=== PATIENT | male | born 1990 | race Caucasian/White ===

== ENCOUNTER 2023-02-17 08:56 | Outpatient (AMB) | payer MEDICAID, SELFPAY ==
--- NOTE | 2023-02-17 09:31 | MHC.OFFVIS ---
Intake Vital Signs 02/17/23 09:43 Height 5 ft 8 in Weight 150 lb BMI 22.8 Intake Visit Reasons: N/P rt knee pain/MRI done at [facility] Intake Note: Boogie 32 yr old male presents today for a new patient visit for his right knee pain and giving way. The patient states that he injured his right knee 4 years ago while skiing. He collided with a tree, twisted his right knee and had acute onset of pain. Since that time his symptoms have gotten worse in spite of continued non operative treatments. He has done physical therapy for 12 weeks over the last 6 months which aggravated his pain. Has had multiple injections. The most recent injection gave him minimal relief. He has also tried Tylenol and anti-inflammatory medicines which gave him only mild relief. The patient states that his right knee will give out several times per day. 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 [employer] Physical Exam Vital Signs: BMI result Body Mass Index 22.8 Const Other: Well-nourished well-developed very friendly male awake alert and oriented x3 in no acute distress Lungs - clear to auscultation bilaterally with symmetric expansion Cardiovascular exam - regular rate and rhythm Abdominal exam - soft nontender nondistended Extrem Other: Bilateral lower extremity examination shows good capillary refill, no skin lesions noted, normal sensation light touch Right knee examination shows a minimal effusion, minimal crepitus with range of motion, tenderness along his medial joint line, positive Alfredo's test, no instability Assessment & Plan Assessment & Plan (1) Tear of medial meniscus of right knee: Code(s): S83.241A - Other tear of medial meniscus, current injury, right knee, initial encounter Plan: Mr. Araiza is a 32-year-old male who presents with progressively worsening right knee pain and mechanical symptoms due to a tear of his medial meniscus. I would a lengthy discussion with the patient regarding the treatment options. At this point the patient has failed continued non operative treatments. The risks and benefits of right knee arthroscopic surgery were discussed at length with the patient. The patient wishes to proceed with surgery. He will contact my office to pick a surgery date. Surgery will most likely involve right knee diagnostic arthroscopy with partial medial meniscectomy. The patient does understand that he may not get 100% relief of his symptoms depending on the severity of his degenerative changes. Feel free to call me at any time should questions regarding his orthopedic management arise. Thank you very much for asking me to see this very friendly gentleman. I spent 22 minutes in reviewing the patient's records and imaging studies, seeing the patient and documenting in the medical record. Coding Level of Care Code New Pt Level 2 (53712) Diagnoses Tear of medial meniscus of right knee S83.241A
[2023-02-17 09:43] VITALS: BMI 22.8
== END 2023-02-17 10:00 | disposition home or self-care (01) ==
PROVIDERS: PCP Internal Medicine; Visit Provider Orthopaedic Surgery
DX: S83.241A Other tear of medial meniscus, current injury, right knee, initial encounter (principal)
CPT/HCPCS: 99202

== ENCOUNTER → 2023-02-17 08:56 | Outpatient (BNVA) | payer MEDICAID, SELFPAY | PROVIDERS: PCP Internal Medicine; Visit Provider Orthopaedic Surgery | DX: S83.241A Other tear of medial meniscus, current injury, right knee, initial encounter (principal) | CPT/HCPCS: 99202 ==

== ENCOUNTER 2023-03-04 10:22 | Day surgery (SDC) | payer MEDICAID, SELFPAY ==
[2023-03-02 09:37] VITALS: BMI 22.8
--- NOTE | 2023-03-03 11:44 | P.CONAN_ITS ---
Documented by User: Joana Zeng NP 03/03/23 11:44 HPI - Anesthesia Eval Consult details Narrative: 32yo M for Right Knee Arthroscopy partial medial meniscectomy, possible lateral meniscectomy PMFSH Active Problems Active Problems: All Active Problems (Updated 03/02/23 @ 09:37 by Sravani Lan RN) Tear of medial meniscus of right knee (Acute) Past Medical History Medical History (Updated 03/02/23 @ 09:37 by Sravani Lan RN) Depression Surgical History Surgical History (Updated 03/02/23 @ 09:36 by Sravani Lan RN) Hx of local excision of skin lesion Social History Social History Patient Tobacco Use Status: Never used Tobacco Current occupational status: employed Current occupation: [employer] Allergies Allergy/AdvReac Type Severity Reaction Status Date / Time amoxicillin Allergy Intermediate Vomiting Verified 03/02/23 09:34 sulfamethoxazole Allergy Intermediate Vomiting Verified 03/02/23 09:34 [From ] trimethoprim [From ] Allergy Intermediate Vomiting Verified 03/02/23 09:34 epinephrine AdvReac Intermediate dizziness Verified 03/02/23 09:33 Home Medications Medication Instructions Recorded Confirmed Last Taken Type aripiprazole 5 mg tablet 5 mg PO DAILY 02/17/23 03/02/23 Unknown History fluoxetine 20 mg capsule 40 mg PO QAM 02/17/23 03/02/23 Unknown History venlafaxine 150 mg 150 mg PO DAILY 02/17/23 03/02/23 Unknown History capsule,extended release 24 hr Exam Height,Weight and Vital Signs: Height 5 ft 8 in Weight 68.039 kg Assessment and Plan Assessment Anesthesia Assessment: Chart Reviewed Documented by User: Jaziel Simmons MD 03/04/23 09:52 PMFSH Past Medical History Medical History (Updated 03/02/23 @ 09:37 by Sravani Lan RN) Depression Family History Family history of problems with anesthesia: No Surgical History Surgical History (Updated 03/02/23 @ 09:36 by Sravani Lan RN) Hx of local excision of skin lesion History of Problems with Anesthesia: No Social History Social History Patient Tobacco Use Status: Never used Tobacco Current occupational status: employed 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 Meds Allergies Allergy/AdvReac Type Severity Reaction Status Date / Time amoxicillin Allergy Intermediate Vomiting Verified 03/02/23 09:34 sulfamethoxazole Allergy Intermediate Vomiting Verified 03/02/23 09:34 [From ] trimethoprim [From ] Allergy Intermediate Vomiting Verified 03/02/23 09:34 epinephrine AdvReac Intermediate dizziness Verified 03/02/23 09:33 Home Medications Medication Instructions Recorded Confirmed Last Taken Type aripiprazole 5 mg tablet 5 mg PO DAILY 02/17/23 03/02/23 Unknown History fluoxetine 20 mg capsule 40 mg PO QAM 02/17/23 03/02/23 Unknown History venlafaxine 150 mg 150 mg PO DAILY 02/17/23 03/02/23 Unknown History capsule,extended release 24 hr Exam Airway Mallampati Class: Patient Non-Cooperative TM Dist: >3cm Neck ROM: Full Heart: rrr Lungs: cts Assessment and Plan Assessment Anesthesia Assessment: Anesthesia Plan Discussed Final Anesthetic Review Family History of Problems with Anesthesia: No History of Problems with Anesthesia: No NPO: Yes ASA Class: I Final Preanesthetic Review: No Changes in Pt Med Stat, Meds/Allgs Chart Reviewed, Consent Obtained/Reviewed and Anes Risks/Benef Reviewed Patient Risk: Low Procedure Risk: Intermediate Anesthetic Plan Anesthetic Plan: GA and Agree w/ Assess. and Plan Disposition: Standard PACU
[2023-03-04] VITALS (10 sets, daily range): BP systolic 85–131; BP diastolic 31–97; PULSE 77–105; RESP 16–18; TEMP 36.4–37.6; O2SAT 95–99; BMI 23.5
[2023-03-04] MEDS: Lactated Ringers 1,000 ML 100 ML IVCONT (11:26)
--- NOTE | 2023-03-04 13:17 | PM.OP ---
Brief Operative Note Date of Service: 03/04/23 Pre-op diagnosis: Right knee medial meniscus tear Post-op diagnosis: same Procedure: Right knee diagnostic arthroscopy with right knee arthroscopic partial medial meniscectomy Implants: none Surgeon: Vaughn Clemens MD Anesthesia: GLMA Was an Carton Waxing Machine Operator used for this Procedure?: No Estimated blood loss (mL): 10 Pathology: none sent Condition: stable Disposition: PACU
--- NOTE | 2023-03-04 13:18 | P.OP_ITS ---
Operative Note Operative Note Date of Service: 03/04/23 Narrative: After the patient was identified as Boogie Araiza and their right knee was initialed by myself they were brought to the operating room where general anesthesia was induced by the anesthesiologist in routine fashion. Because of the patient's allergy to amoxicillin he was given 900 mg of IV clindamycin preoperatively for infection prophylaxis. A formal time-out was completed. The patient's right lower extremity was prepped and draped in sterile fashion. Marcaine with epinephrine was injected into the planned incision sites as well as their left knee joint. A # 11 scalpel blade was used to make an anterolateral portal 1 cm proximal to the joint line and 1 cm lateral to the patellar tendon. Blunt trocar technique was used into the suprapatellar pouch with the knee in extension. Diagnostic arthroscopy showed multiple bands of thickened plica which would be excised at the end of the procedure. There were no loose bodies or abnormalities found in either the medial or lateral gutters. There were diffuse grade 1 degenerative changes of the undersurface of the patella as well as minimal degenerative changes of the trochlear groove. The patient's knee was flexed to 45 degrees and a valgus force was placed upon it. The medial compartment was entered. An anteromedial portal was made 1 cm proximal to the joint line and 1 cm medial to the patellar tendon. Probing of the medial meniscus showed a radial tear of the anterior horn. A partial medial meniscectomy was performed using the arthroscopic shaver. Following the partial meniscectomy the remainder of the meniscus tissue was stable. There were mi nimal degenerative changes of the medial femoral condyle and medial tibial plateau. The patient's knee was then placed into a neutral position. There was no injury to the anterior cruciate ligament. The patient's knee was then placed into the figure of 4 position and the lateral compartment was entered. There were minimal degenerative changes of the lateral femoral condyle and lateral tibial plateau. There was no evidence of lateral meniscus tearing. The patient's knee was once again brought into extension and the suprapatellar pouch was entered. The arthroscopic shaver and the ArthroCare Wand were used to excise the thickened bands of plica. The knee joint was irrigated and then drained. All arthroscopic instruments were removed. The 2 portals were closed with 3-0 nylon interrupted suture. The knee joint was injected with Marcaine. Dry sterile dressing and Franklin bandages were placed over the patient's knee. The patient was woken and expand the operating room. They were transferred to the recovery room in stable condition.
== END 2023-03-04 15:25 | disposition home or self-care (01) ==
PROVIDERS: PCP Physician Assistant; Visit Provider Orthopaedic Surgery
PROC: (CPT 29870; principal; 2023-03-04 12:10)
DX: S83.241A Other tear of medial meniscus, current injury, right knee, initial encounter (principal); M67.51 Plica syndrome, right knee; M17.11 Unilateral primary osteoarthritis, right knee; X58.XXXA Exposure to other specified factors, initial encounter; X50.1XXA Overexertion from prolonged static or awkward postures, initial encounter; Y93.9 Activity, unspecified; Y92.9 Unspecified place or not applicable; Y99.8 Other external cause status; W22.09XA Striking against other stationary object, initial encounter; Y93.23 Activity, snow (alpine) (downhill) skiing, snowboarding, sledding, tobogganing and snow tubing; Z79.899 Other long term (current) drug therapy; Z88.0 Allergy status to penicillin; Z88.1 Allergy status to other antibiotic agents; Z88.8 Allergy status to other drugs, medicaments and biological substances
CPT/HCPCS: 29881; J0131; J0171; J0690; J0736; J1100; J1885; J2371; J2405; J2704; J2795

== ENCOUNTER → 2023-03-04 10:22 | Outpatient (BNV) | payer MEDICAID, SELFPAY | PROVIDERS: PCP Physician Assistant; Visit Provider Orthopaedic Surgery | DX: S83.231A Complex tear of medial meniscus, current injury, right knee, initial encounter (principal) | CPT/HCPCS: 29881 ==

== ENCOUNTER 2023-03-24 08:51 | Outpatient (AMB) | payer MEDICAID, SELFPAY ==
--- NOTE | 2023-03-24 09:02 | A.OFFVIS_ITS ---
Intake Intake Visit Reasons: PO-Rt Knee 03/04 Intake Note: Boogie a 32 year old male presents today for a post operative right knee on 03/04/23 . Patient reports that he is doing well however he continues to have pain and discomfort. Current pain level is 7 out of 10. Allergies amoxicillin Allergy (Intermediate, Verified 03/24/23 09:06) Vomiting sulfamethoxazole [From Septra] Allergy (Intermediate, Verified 03/24/23 09:06) Vomiting trimethoprim [From Septra] Allergy (Intermediate, Verified 03/24/23 09:06) Vomiting epinephrine Adverse Reaction (Intermediate, Verified 03/24/23 09:06) dizziness HPI PO-Rt Knee 03/04 HPI Details 32-year-old male who returns to the [facility] today for post-op right knee , 03/04/[address] Clemens. He continues to have pain, discomfort and swelling in his knee and rates the pain 7 as on the scale of 0-10. He is doing well otherwise and has no other concerns today. 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 No joint effusion, no erythema. ROM is 0-100 degrees. Calf supple, nontender. NVI. Results Reviewed Results Reviewed: Date of Service: 03/04/23 Pre-op diagnosis: Right knee medial meniscus tear Post-op diagnosis: same Procedure: Right knee diagnostic arthroscopy with right knee arthroscopic partial medial meniscectomy Implants: none Surgeon: Vaughn Clemens MD Assessment & Plan Assessment & Plan (1) Tear of medial meniscus of right knee: Code(s): S83.241A - Other tear of medial meniscus, current injury, right knee, initial encounter Qualifiers: Tear current or old: current Encounter type: subsequent encounter Meniscus tear of knee type: peripheral Qualified Code(s): S83.221D - Peripheral tear of medial meniscus, current injury, right knee, subsequent encounter Plan Sutures were removed today in the office today. He will begin a course of physical therapy to work on ROM, quad strength and gait training. He will remain out of work till he returns to office in 4 weeks for reevaluation, sooner if needed. Orders: Orders PT Evaluation and Treatment Today S83.241A - Other tear of medial meniscus, current injury, right knee, initial encounter Patient Instructions: Scribed for Kat Wilkins PA-C, by Jose Cheng medical care evaluation specialist, on 03/24/2023 at 9:00 AM EST. I, Kat Wilkins PA-C, have personally reviewed and agree with the information entered by the scribe. Coding Level of Care Code Global (71445) Diagnoses Peripheral tear of medial meniscus of right knee as current injury, subsequent encounter S83.221D Tear current or old: current Encounter type: subsequent encounter Meniscus tear of knee type: peripheral
== END 2023-03-24 09:34 | disposition home or self-care (01) ==
PROVIDERS: PCP Physician Assistant; Visit Provider Physician Assistant
DX: S83.221D Peripheral tear of medial meniscus, current injury, right knee, subsequent encounter (principal)
CPT/HCPCS: 99024

== ENCOUNTER → 2023-03-24 08:51 | Outpatient (BNVA) | payer MEDICAID, SELFPAY | PROVIDERS: PCP Physician Assistant; Visit Provider Physician Assistant | DX: S83.221D Peripheral tear of medial meniscus, current injury, right knee, subsequent encounter (principal) | CPT/HCPCS: 99212 ==

== ENCOUNTER 2023-04-21 09:27 | Outpatient (AMB) | payer MEDICAID, SELFPAY ==
--- NOTE | 2023-04-21 09:29 | A.OFFVIS_ITS ---
Intake Vital Signs 04/21/23 09:30 Height 5 ft 8 in Weight 150 lb BMI 22.8 Intake Visit Reasons: PO-Rt Knee 03/04 Intake Note: Boogie a 32 year old male presents with his mother today for a post operative Right knee on 03/04/23 . Patient reports that he is feeling good for the most part but is causing some discomfort when driving. Physical therapy is helping and he is icing as needed. He plans to return to work over the next few weeks as his symptoms allow. Allergies amoxicillin Allergy (Intermediate, Verified 04/21/23 09:34) Vomiting sulfamethoxazole [From Septra] Allergy (Intermediate, Verified 04/21/23 09:34) Vomiting trimethoprim [From Septra] Allergy (Intermediate, Verified 04/21/23 09:34) Vomiting epinephrine Adverse Reaction (Intermediate, Verified 04/21/23 09:34) dizziness Medication List - Last Reconciled 04/21/23 by Vaguhn Clemens MD fluoxetine 40 mg PO QAM griseofulvin microsize mg PO lamotrigine 100 mg PO DAILY oxycodone 5 mg PO Q6H PRN venlafaxine ER 150 mg PO DAILY PFSH Medical History History of chemotherapy Pneumothorax Depression Surgical History History of kidney surgery History of orchiectomy, unilateral H/O brain surgery Hx of local excision of skin lesion Social History Patient Tobacco Use Status: Never used Tobacco Current occupational status: employed Current occupation: [employer] Physical Exam Vital Signs: BMI result Body Mass Index 22.8 Extrem Other: Right knee examination shows that the surgical incisions are well healed, minimal discomfort with range of motion, no crepitus with range of motion Assessment & Plan Assessment & Plan (1) Right knee pain: Code(s): M25.561 - Pain in right knee Plan Mr. Araiza continues to do well after undergoing right knee arthroscopic surgery on 03/04/2023. He will continue progressing to activities as tolerated. He can return to work when his symptoms are improved. He will contact me prior to his follow-up appointment in 2-3 months should any questions or concerns arise. Feel free to call me at any time should questions regarding his orthopedic management arise. Coding Level of Care Code Global (95404) Diagnoses Right knee pain M25.561
[2023-04-21 09:30] VITALS: BMI 22.8
== END 2023-04-21 09:59 | disposition home or self-care (01) ==
PROVIDERS: PCP Physician Assistant; Visit Provider Orthopaedic Surgery
DX: M25.561 Pain in right knee (principal)
CPT/HCPCS: 99024

== ENCOUNTER → 2023-04-21 09:27 | Outpatient (BNVA) | payer MEDICAID, SELFPAY | PROVIDERS: PCP Physician Assistant; Visit Provider Orthopaedic Surgery | DX: M25.561 Pain in right knee (principal) | CPT/HCPCS: 99212 ==

== ENCOUNTER 2023-07-19 07:00 | Outpatient (RCR) | payer MEDICAID, SELFPAY ==
--- NOTE | 2023-03-30 15:13 | MHC.PT.EP ---
[facility] [place] Office [place] Office [place] Office [address] Elizabeth Steinberg [address] [phone] F: [phone] F: [phone] F: [phone] F: [phone] Physical Therapy Plan of Care Date of Evaluation: 03/30/23 Date of Surgery: 03/04/23 Diagnosis: S/P R KNEE PARTIAL MENISCECTOMY Assessment: Pt IS 32 YO M REFERRED TO PT FROM ORTHO (JEANNE) S/P R KNEE PARTIAL MEDIAL MENISCECTOMY BY DR JUÁREZ ON 03/04/23. AFTER ABOUT 4 YR HX OF RP KNEE ISSUES. PRESENTS TO PT WITHOUT LIMP.(BUT HIP ER NOTED). REPORTS KNEE PAIN WITH MIN SWELLING, SOME R LE WEAKNESS (DECREASED ENDURANCE) AND SLIGHT LIMITED R KNEE ROM. 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 WOULD LIKE TO GET BTW AND SKIING Frequency and Duration: The patient will be seen 2X/WK X 4 WKS THEN 1X/WK X 2 WEEKS Short Term Goals: 1. INCREASED AWARENESS KNEE CARE 2. R KNEE ROM 0-130 Penitentiary Goals: 1. RTW 2. I HEP WITH DC EX PLAN 3. DECREASED R KNEE PAIN AT LEAST 50% WITH ADLS Treatment Plan: Modalities to reduce pain, spasms and effusion. Manual therapy to restore motion and function. Therapeutic exercise to improve strength and flexibility. Neuromuscular re-education for posture and balance. Therapeutic activities to return to functional activities of daily living. Electronically signed by: KASANDRA VO Please sign and return to therapist. Thank you for your referral.
--- NOTE | 2023-07-19 09:59 | MHC.PT.OD ---
[facility] [place] Office [place] Office [place] Office [address] Elizabeth Steinberg [address] [phone] F: [phone] F: [phone] F: [phone] F: [phone] Physical Therapy Daily Note Diagnosis: S/P R KNEE PARTIAL MENISCECTOMY Date of Surgery: 03/04/23 Date of Evaluation: 03/30/23 Date of Treatment: 07/19/23 Treatments to Date: 19 Cancellations to Date: No Shows to Date: Authorized Visits: Insurance End Date: Precautions/ Contraindications:S/P R MEDIAL PARTIAL MENISCECTOMY HX OF CA/CHEMOTHERAPY BRAIN SURGERY IN PAST Subjective: Pt has resumed playing some basketball and has tried gentle hiking. Has not been to PT since 06/10/23. Pain Score and Location: 3 LIM Objective Flowsheet: Tests & Measures R knee pain 2-7/10 Pt SLS ~3 seconds. Pt has baseline poor tolerance for SLS control. Exercises Held bike Review Standing 4 way resisted hip with TB cues for stability/support/technique, review of standing mini squat to 45 pain-free level only (benefitted from review of technique, trial BAPS board level 5 base (poor tolerance for weight shift DF/PF, EV/IV with pain reported so this was DC. STANDING [address] HIP WITH RED TB X 20 R EA B, STANDING CALF STRETCH X 3 R B, B HEEL RAISE X 20, STEP UPS LEADING WITH R ON 6 INCH SETP X 20 R, SLS R AND L FOR TOE TAPS ON BOX X 20 R B, WALL SLIDE X 2 SETS OF 10, LUNGES A/P/LAT WITH EMPHASIS ON PUSH OFF Pt ASKS ABOUT TAPING FOR KNEE. ED CAN BE BENEFICIAL POST OP TYPE PAIN DECREASES Modalities Pt request ice anterior/posterior knee at end of session x 5 minutes Assessment: 07/19/23: Pt has attended 18 sessions of PT to date, exhibiting plateaued progress but overall improved progress in mobility. He has met goals in regard to PT at this time. He has reported played some light pickup basketball and has trialed some low level hiking with ongoing sx reported. He has tried skiing back in May and had sx for several days after. He inquires about ability to resume. He has poor tolerance for BAPS board in the office and has sx with >45 degree mini squat in medial aspect of his knee. He he been advised to refrain from running, jumping, and impact activities which load his R knee. Pt has a follow up with his surgeon on 07/21/23. 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 Pt has limited SLS control on either side (hx brain surgery limited at baseline). Pt's AROM 0 to 128 degrees. Please advise. Pt inquires bout other options for his knee. Pt states his ultimate goal is skiing. Please advised. 06/10/23: Pt advancing in level of strength and dynamic positions in regard to his R knee. He has been eager to try skiing again, however due to pain pt reports with stairs and ongoing patient encourages patient to give strengthening program more time. Pt is scheduled to meet with his surgeon again on 07/21/23. Pt reports pain medially anterior aspect of his knee, reports need to ice often. At one point today he states his knee pain is worse than before surgery. 05/30/23: Pt advancing in level of eccentric control. He has resumed working long hours with minimal discomfort. Pt denies pain with exercises as noted above. Reduction in level of UE support on bars required with LE tasks. 05/27/23: Pt has returned to work. He reports trying to shoot/jogging playing basketball for an hour an a half yesterday. Reports compliance with HEP, has next appt with Dr. Clemens July 20. Pt continues to exhibit challenge with SLS and eccentric control of R >L LE. Requires increased cues for guidance of exercise (hx brain surgery). IMPROVING SL BALANCE NOTED, NO C/O PAIN WITH STRETCHES/EXS. SHOULD BE ABLE TO DECREASE TO 1X/WK SOON. 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 Short Term Goals: 1. INCREASED AWARENESS KNEE CARE 2. R KNEE ROM 0-130 [facility] Goals: 1. RTW 2. I HEP WITH DC EX PLAN 3. DECREASED R KNEE PAIN AT LEAST 50% WITH ADLS Electronically signed by: Edith Haas, PT, DPT
--- NOTE | 2023-08-10 14:48 | MHC.PT.DC ---
[facility] [place] [facility] [place] [facility] [place] [facility] [address] Elizabeth Steinberg [address] [phone] F: [phone] F: [phone] F: [phone] F: [phone] Physical Therapy Discharge Report Diagnosis: S/P R KNEE PARTIAL MENISCECTOMY Date of Surgery: 03/04/23 Date of Evaluation: 03/30/23 Date of Discharge: 08/10/23 Treatments to Date: 19 Cancellations to Date: No Shows to Date: Discharge Status: Achieved Goals Improved Function Independent with HEP Recommend MD Follow-up Discharge Summary: PER ASSESSMENT BY BALJEET SCHMIDT PT, DPT AT LAST VISIT 07/19/23: Pt has attended 18 sessions of PT to date, exhibiting plateaued progress but overall improved progress in mobility. He has met goals in regard to PT at this time. He has reported played some light pickup basketball and has trialed some low level hiking with ongoing sx reported. He has tried skiing back in May and had sx for several days after. He inquires about ability to resume. He has poor tolerance for Eventful[employer] board in the office and has sx with >45 degree mini squat in medial aspect of his knee. He he been advised to refrain from running, jumping, and impact activities which load his R knee. Pt has a follow up with his surgeon on 07/21/23. 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 Pt has limited SLS control on either side (hx brain surgery limited at baseline). Pt's AROM 0 to 128 degrees. Please advise. Pt inquires bout other options for his knee. Pt states his ultimate goal is skiing. Please advised. Electronically signed by: KASANDRA ORONA PT Please sign and return to therapist. Thank you for your referral.
== END 2023-08-10 14:48 | disposition home or self-care (01) ==
LOC: HO.PTWFD 07:00
PROVIDERS: PCP Physician Assistant; Visit Provider Physician Assistant
DX: S83.241D Other tear of medial meniscus, current injury, right knee, subsequent encounter (principal)
CPT/HCPCS: 97110; 97161; 97530; 97535

== ENCOUNTER 2023-07-21 08:26 | Outpatient (AMB) | payer MEDICAID, SELFPAY ==
[2023-07-21 08:27] VITALS: BMI 22.8
--- NOTE | 2023-07-21 08:27 | A.OFFVIS_ITS ---
Intake Vital Signs 07/21/23 08:27 Height 5 ft 8 in Weight 150 lb BMI 22.8 Intake Visit Reasons: ov-Rt Knee 03/04 Intake Note: Boogie is a 32 year old male who presents for his follow up s/p his Right knee on 03/04/2024. He reports mild intermittent discomfort in his right knee. He has completed formal physical therapy. He continues with his home exercise program. He also states that he is going to begin working out at the gym. Allergies amoxicillin Allergy (Intermediate, Verified 07/21/23 08:33) Vomiting sulfamethoxazole [From Septra] Allergy (Intermediate, Verified 07/21/23 08:33) Vomiting trimethoprim [From Septra] Allergy (Intermediate, Verified 07/21/23 08:33) Vomiting epinephrine Adverse Reaction (Intermediate, Verified 07/21/23 08:33) dizziness Medication List - Last Reconciled 07/21/23 by Vaughn Clemens MD fluoxetine 40 mg PO QAM griseofulvin microsize mg PO lamotrigine 100 mg PO DAILY oxycodone 5 mg PO Q6H PRN venlafaxine ER 150 mg PO DAILY PFSH Medical History History of chemotherapy Pneumothorax Depression Surgical History History of kidney surgery History of orchiectomy, unilateral H/O brain surgery Hx of local excision of skin lesion Social History Patient Tobacco Use Status: Never used Tobacco Current occupational status: employed Current occupation: [employer] Physical Exam Vital Signs: BMI result Body Mass Index 22.8 Const Other: Well-nourished well-developed very friendly male awake alert and oriented x3 in no acute distress Extrem Other: Bilateral lower extremity examination shows good capillary refill, no skin lesions noted, normal sensation light touch Right knee examination shows that the surgical incisions are well healed, no erythema, no crepitus with range of motion, minimal discomfort with range of mo tion, no instability Assessment & Plan Assessment & Plan (1) Right knee pain: Code(s): M25.561 - Pain in right knee Plan Boogie continues to do well after undergoing right knee arthroscopic surgery on 03/04/2000 3. He will continue with his exercise program. Stretching exercises were also encouraged today. He will contact me prior to his follow-up appointment in 2-3 months should any questions or concerns arise. Feel free to call me at any time should questions regarding his orthopedic management arise. I spent 22 minutes in reviewing the patient's records and imaging studies, seeing the patient and documenting in the medical record. Coding Level of Care Code Est Pt Level 2 (46803) Diagnoses Right knee pain M25.561
== END 2023-07-21 09:04 | disposition home or self-care (01) ==
PROVIDERS: PCP Physician Assistant; Visit Provider Orthopaedic Surgery
DX: M25.561 Pain in right knee (principal)
CPT/HCPCS: 99213

== ENCOUNTER → 2023-07-21 08:26 | Outpatient (BNVA) | payer MEDICAID, SELFPAY | PROVIDERS: PCP Physician Assistant; Visit Provider Orthopaedic Surgery | DX: M25.561 Pain in right knee (principal) | CPT/HCPCS: 99212 ==

== ENCOUNTER 2023-10-20 08:26 | Outpatient (AMB) | payer OTHER, SELFPAY ==
--- NOTE | 2023-10-20 08:39 | A.OFFVIS_ITS ---
Vital Signs 10/20/23 08:40 Height 5 ft 8 in Weight 144 lb BMI 21.9 Intake Visit Reasons: ov-Rt Knee 03/04 DR-3 month follow up Intake Note: Boogie is a 32 year old male who presents for a follow up of his right knee s/p Right knee 03/04/2023. He reports mild intermittent discomfort in his knee. He denies any fevers or chills. He denies any locking or giving way. He states that his discomfort has improved when compared to preop. Allergies amoxicillin Allergy (Intermediate, Verified 10/20/23 08:42) Vomiting sulfamethoxazole [From Septra] Allergy (Intermediate, Verified 10/20/23 08:42) Vomiting trimethoprim [From Septra] Allergy (Intermediate, Verified 10/20/23 08:42) Vomiting epinephrine Adverse Reaction (Intermediate, Verified 10/20/23 08:42) dizziness Medication List - Last Reconciled 10/20/23 by Vaughn Clemens MD cetirizine (Wal-Zyr (cetirizine)) 10 mg PO DAILY PRN fluoxetine 40 mg PO QAM lurasidone 20 mg PO DAILY venlafaxine ER 150 mg PO DAILY PFSH Medical History History of chemotherapy Pneumothorax Depression Surgical History History of kidney surgery History of orchiectomy, unilateral H/O brain surgery Hx of local excision of skin lesion Social History Patient Tobacco Use Status: Never used Tobacco Current occupational status: employed Current occupation: [employer] Physical Exam Vital Signs: BMI result Body Mass Index 21.9 Const Other: Well-nourished well-developed very friendly male awake alert and oriented x3 in no acute distress Extrem Other: Bilateral lower extremity examination shows good capillary refill, no skin lesions noted, normal sensation light touch Right knee examination shows that the surgical incisions are well healed, no erythema, minimal discomfort with range of motion, no crepitus with range of motion Assessment & Plan Assessment & Plan (1) Right knee pain: Code(s): M25.561 - Pain in right knee Category: Medical Plan Mr. Araiza continues to do well after undergoing right knee arthroscopic surgery on 03/04/2023. He will continue with his exercise program. At this point his discomfort is tolerable to him. We will hold off on an injection. He will follow up with me on an as-needed basis should his symptoms worsen in any way. Feel free to call me at any time should questions regarding his orthopedic management arise. I spent 21 minutes in reviewing the patient's records and imaging studies, seeing the patient and documenting in the medical record. Coding Level of Care Code Est Pt Level 3 (78280) Diagnoses Right knee pain M25.561
[2023-10-20 08:40] VITALS: BMI 21.9
== END 2023-10-20 08:58 | disposition home or self-care (01) ==
PROVIDERS: PCP Physician Assistant; Visit Provider Orthopaedic Surgery
DX: M25.561 Pain in right knee (principal)
CPT/HCPCS: 99213

== ENCOUNTER → 2023-10-20 08:26 | Outpatient (BNVA) | payer OTHER, SELFPAY | PROVIDERS: PCP Physician Assistant; Visit Provider Orthopaedic Surgery ==

== ENCOUNTER → 2023-11-18 08:15 | Outpatient (BNV) | payer OTHER, SELFPAY | PROVIDERS: Visit Provider Psychiatry & Neurology Psychiatry | DX: F41.1 Generalized anxiety disorder (principal); F32.A Depression, unspecified; F81.9 Developmental disorder of scholastic skills, unspecified; R41.840 Attention and concentration deficit; F84.8 Other pervasive developmental disorders; Z86.59 Personal history of other mental and behavioral disorders | CPT/HCPCS: 90792; 99213; 99214; 99499 ==

== ENCOUNTER 2023-11-21 07:26 | Outpatient (REF) | payer OTHER, SELFPAY ==
--- NOTE | 2023-11-21 | ECG_ITS ---
Test Reason : qtc check Blood Pressure : / mmHG Vent. Rate : 092 BPM Atrial Rate : 092 BPM P-R Int : 146 ms QRS Dur : 072 ms QT Int : 334 ms P-R-T Axes : 079 071 055 degrees QTc Int : 413 ms Normal sinus rhythm Right atrial enlargement Borderline ECG No previous ECGs available Referred By: Sonia Mireles Electronically Signed By:SELIN GARCIA
[2023-11-21 07:49] LABS: MANUAL DIFF FLAG NO
[2023-11-21 08:23] LABS: Basophils Absolute Auto 0.1 X10*3/uL (0.0-0.2); Eosinophils Absolute Auto 0.3 X10*3/uL (0.0-0.4); Eosinophils Percent Auto 5.3 % (0-4); Hematocrit 47.6 % (42.0-52.0); Hemoglobin 15.8 g/dl (14.0-18.0); Imm Gran Abs Auto 0.02 X10*3/uL (0.00-0.03); Imm Gran Pct Auto 0.3 % (0.0-0.4); Lymphocytes Absolute Auto 1.8 X10*3/uL (1.2-4.9); Lymphocytes Percent Auto 31.3 % (20-40); Mean Corpuscular HGB Conc 33.2 g/dl (31.0-36.0); Mean Corpuscular Hemoglobin 28.1 pg (27.0-33.0); Mean Corpuscular Volume 84.7 fL (80.0-98.0); Mean Platelet Volume 9.5 fL (9.4-12.4); Monocytes Absolute Auto 0.6 X10*3/uL (0.1-1.2); Monocytes Percent Auto 9.9 % (2-11); Neutrophils Absolute Auto 3.1 x10*3/uL (2.0-8.3); Neutrophils Percent Auto 52.2 % (45-73); Platelet Count 295 X10*3/uL (160-400); Red Blood Count 5.62 X10*6/uL (4.60-5.80); Red Cell Distribution Width 12.6 % (11.0-16.0); White Blood Count 5.9 X10*3/uL (4.8-10.8)
[2023-11-21 08:31] LABS: Estimated Average Glucose 97 mg/dL
[2023-11-21 08:53] LABS: Alanine Aminotransferase 27 U/L (0-40); Albumin Level 4.6 g/dL (3.5-5.0); Alkaline Phosphatase 57 U/L (39-117); Anion Gap 13 (12-20); Aspartate Amino Transferase 28 U/L (5-37); Bilirubin Total 0.7 mg/dL (0.0-1.0); Blood Urea Nitrogen 15 mg/dL (9-16); Calcium 10.3 mg/dL (8.4-10.2); Carbon Dioxide 27 mmol/L (22-29); Chloride 105 mmol/L (96-108); Cholesterol 193 mg/dL (<200); Estimated Glomerular Filt Rate > 60; Glucose Fasting 95 mg/dL (60-99); HDL Cholesterol 54 mg/dL (>40); Iron 59 mcg/dL (45-160); LDL Cholesterol Calculated 115 mg/dL (<100); Percent Iron Saturation 21 % (15-50); Potassium 3.9 mmol/L (3.3-5.1); Sodium 141 mmol/L (135-145); Total Iron Binding Capacity 285 mcg/dL (228-428); Total Protein 7.7 g/dL (6.5-8.0); Triglycerides 120 mg/dL (<150); Unsaturated Iron Binding 226 ug/dL
[2023-11-21 08:59] LABS: Erythrocyte Sedimentation Rate 5 MM/HR (0-15)
[2023-11-21 09:11] LABS: Ferritin 45 ng/mL (20-250); Free T4 (Free Thyroxine) 1.06 ng/dL (0.71-1.85); Vitamin D 25-OH Total 52.6 ng/mL (>30)
[2023-11-21 09:20] LABS: Folate 7.9 ng/mL (> or = 4.0); Vitamin B12 747 pg/mL (200-900)
== END 2023-11-21 07:27 | disposition home or self-care (01) ==
LOC: HO.LAB 07:26
PROVIDERS: Visit Provider Psychiatry & Neurology Psychiatry
DX: F41.1 Generalized anxiety disorder (principal); Z13.1 Encounter for screening for diabetes mellitus
CPT/HCPCS: 36415; 80053; 80061; 82306; 82607; 82728; 82746; 83036; 83540; 83735; 84439; 85025; 85652; 93005

== ENCOUNTER 2023-12-12 08:30 | Outpatient (RCR) | payer OTHER, SELFPAY ==
[2023-11-18 10:46] VITALS: BMI 22.2
[2023-11-18 11:37] VITALS: BP 124/82; PULSE 74; TEMP 37.1
--- NOTE | 2023-11-18 11:51 | PC.ADMIT ---
Patient is a 33 year old single male who self referred to [facility] secondary to increased depression and anxiety sxs. Patient also reports struggling with OCD sxs. Patient feels stuck in his life. 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 Taking time off from work to attend [facility] and work on his mental health. He currently lives with parents who are supportive. He reports going through many medical challenges including a history of testicular cancer, 2 spontaneous pneumothorax's, tumor surgically removed on kidney, and brain surgery to have a cyst removed. Patient is alert and oriented x4. Calm and cooperative. Thoughts are logical and clear. Patient presented with depressed mood anxious affect. Moderate tremor in bilateral hands/arms. He stated he is very anxious. He denied SI currently, patient stated, I have had them in the past but no serious plan just a thought . He was given a copy of his safety plan if needed. Medications reconciled with patient and patient's pharmacy. He reports taking medications as prescribed.
--- NOTE | 2023-11-18 23:50 | HO.PS.ADMBH ---
HPI Date of Service: 11/18/23 Chief Complaint: anxiety,OCD Sources of Information: patient interviewed, chart reviewed and crisis/core team assessment reviewed HPI Narrative: Patient is an employed, single 33 yo male with history of anxiety, depression, OCD, Learning Disabilities and other pertinent developmental and past medical history, who was self-referred to PHP on the suggestion his mother who is a social media manager. I've been having ongoing problems...I am 10 years out of college, lots of different jobs but mostly been underemployed for years, I haven't had a career type job and just feel like I am not getting anywhere in life . Patient shares that he has life goals of being successful and becoming a homeowner, getting , having a family, but feels unclear what the next steps are, how to make progress and just feels he is without any clear direction . Past Psychiatric History: Denies any history of IPLOC, PHP or detox/rehab admissions Denies SA or SIBs Hx of developmental issues, prematurity as well as medical problems requiring brain surgery at age 7 Hx Learning disabilities, working memory and processing issues was in special education in childhood and eventually maintained on an IEP Carries diagnoses for LD, OCD There has been mention of ADHD but previous clinician suggested struggles related to anxiety, learning disabilities. He was treated with Strattera which he did not tolerate, and experienced side effects in keeping with serotonin syndrome (of note pt was simultaneously treated on Strattera, Prozac, Effexor) Previous treatment trials: patient has been on combination of Prozac 40 mg and Effexor XR 150 mg since 2007. He is unsure why he has remained on both because they were started over 15 years ago. Following medications were added as augmentation to this regime, mostly were poorly tolerated and caused side effects in a short time (except lithium and Latuda): Lamictal (fatigue), Abilify (worsening mood/SI), Risperidal (fatigue poor tolerance), olanzapine (dizziness), Strattera in 2019, Valium, lorazepam, [place] ([id number] I did pretty well ), Latuda (current - believes it was started for anxiety, and has been modestly helpful, does help with sleep) CURRENT MEDICATIONS: fluoxetine 40 mg qam venlafaxine ER 150 mg qam Latuda 40 mg qd w supper cetirizine 10 mg qd prn ciclopirox (for seborrhaic dermatitis) clobetasol (for seborrhaic dermatitis) ketoconazole (for seborrhaic dermatitis) [facility] Medical History (Updated 11/21/23 @ 09:17 by Sonia Mireles MD) History of chemotherapy Pneumothorax Depression Narrative: Born prematurely 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, underwent surgery at 7 yo Collapsed lung x2 as a teen Testicular cancer in 2016, s/p orchiectomy (R) Underwent chemotherapy Seborrhaic dermatitis Surgical History (Updated 11/18/23 @ 10:44 by Christiana Shankar RN) History of kidney surgery History of orchiectomy, unilateral H/O brain surgery Hx of local excision of skin lesion Social History: Unmarried, no children Lives at home with parents 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 Has held previous jobs at [employer] and the [employer] at his school Born and raised in [place], [place] with both parents and younger brother (Developmental history as noted above) He was involved with [employer] from [id number] but was diagnosed with cancer and moved back home with his parents Graduated from [employer] with Bachelors degree in Business Management/[employer] in 2014 He moved to [place] in 2019, gained employment out there due to family connections, 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 No hx of abuse/dependence Cannabis - tried once in college. Never since No illicit substance use Lifetime nonsmoker Trauma History: medical/health-related trauma Diagnostics Vital Signs (24Hr): Vital Signs - 24 hr 11/18/23 11:37 Temperature 98.8 F Pulse Rate 74 Blood Pressure 124/82 BMI result Body Mass Index 22.2 Meds/Allergies Meds Home Medications ?Medication ?Instructions ?Recorded ?Confirmed ?Type venlafaxine 150 mg 150 mg PO DAILY 02/17/23 11/18/23 History capsule,extended release 24 hr cetirizine 10 mg capsule (Wal-Zyr 10 mg PO DAILY PRN Allergy Symptoms 10/20/23 11/18/23 History (cetirizine)) ciclopirox 1 % shampoo See Rx Instructions .Route .COMPLEX 11/18/23 11/18/23 History clobetasol 0.05 % scalp solution See Rx Instructions .Route .COMPLEX 11/18/23 11/18/23 History ketoconazole 2 % topical cream See Rx Instructions .Route 11/18/23 11/18/23 History .COMPLEX PRN Rash lurasidone 40 mg tablet 40 mg PO DAILY 11/18/23 11/18/23 History Allergies Allergies Allergy/AdvReac Type Severity Reaction Status Date / Time amoxicillin Allergy Intermediate Vomiting Verified 10/20/23 08:42 sulfamethoxazole Allergy Intermediate Vomiting Verified 10/20/23 08:42 [From ] trimethoprim [From ] Allergy Intermediate Vomiting Verified 10/20/23 08:42 scallops Allergy Vomiting Verified 11/18/23 10:45 epinephrine AdvReac Intermediate dizziness Verified 10/20/23 08:42 Mental Status Exam Mental Status Exam Narrative: Alert, oriented, in no acute distress. Presents as nervous, tremulous, with notable stammer, but is otherwise pleasant, somewhat superficially brighter than expected, very talkative but engaging. Comes across as younger than his chronological age. Maintains eye contact. Mood good , affect anxious, constricted, brighter than expected. Speech normal. Thought process linear, coherent. Thought content related to stressors, denies any hopelessness or SI. Denies any aggressive ideation or HI. No paranoia or delusional content elicited. No evidence of psychosis. Insight and judgment - fair but adequate. Assessment & Plan Assessment & Plan (1) MIGUEL A (generalized anxiety disorder): Status: Acute Code(s): F41.1 - Generalized anxiety disorder (2) Depressive disorder: Status: Acute Code(s): F32.A - Depression, unspecified (3) Learning disability: Status: Acute Code(s): F81.9 - Developmental disorder of scholastic skills, unspecified (4) Cognitive attention deficit: Status: Acute Code(s): R41.840 - Attention and concentration deficit Assessment and Plan: with patchy LT memory impairment (?related to chemotx or medical condition) otherwise possible related to developmental issues r/o ADHD (5) Other pervasive developmental disorders: Status: Acute Code(s): F84.8 - Other pervasive developmental disorders Assessment and Plan: r/o ASD, r/o NVLD (6) History of OCD (obsessive compulsive disorder): Status: Acute Code(s): Z86.59 - Personal history of other mental and behavioral disorders Plan Admit to [facility] VS reviewed: hermila, BP 124/82;?74 bpm mood appears to be stable and given the redundancy of being treated on 2 fully therapeutically-dosed antidepressants and yet is still undertreated for anxiety, would prefer tapering him off one of these and starting Buspar to further treat generalized anxiety Also he appears shaky, and given history of side effects to many other medications started I suspect that this combination of SSRI/SNRI is complicating his treatment and made adding Strattera (yet a 3rd antidepressant) intolerable. Given history of withdrawal symptoms from the rare occasion of missing his medications, I suspect he will have an easier time tapering off fluoxetine rather than Effexor. taper fluoxetine to 30 mg qam continue venlafaxine ER 150 mg qd continue lurasidone 40 mg qd will anticipate starting Buspar once Prozac is lower and consider treatment for ADHD Routine lab work ordered EKG, routine for baseline QTc for medication considerations UDS as indicated MassPat reviewed Continue to monitor as per protocol Patient educated on: diagnosis and medication risk/benefits Informed Consent: understands Reason for continued partial hosp. stay Substantial Risk for: inability to function and med/psych decompensation Certification I certify that partial hospital treatment is medically necessary due to the symptoms and problems resulting from the patient's mental illness and the failure to treat the patient at the partial hospital level of care would likely result in the patient requiring inpatient psychiatric care which could not be prevented at a less intensive level of care. Time Spent With Patient Time: Total time managing care of this patient today __60__ minutes.
--- NOTE | 2023-11-24 14:59 | HO.PHP ---
Pt's case has been opened and reviewed in treatment team.
--- NOTE | 2023-11-25 22:39 | P.PNPSP_ITS ---
Subjective Subjective Date of Service: 11/25/23 Reason For Visit: anxiety,OCD Interim History: Patient seen for follow up. Anxiety has been manageable and mood has been holding up well even with decrease in fluoxetine to 30 mg. He tried the lorazepam once in the interim like we mentioned to see if it could be helpful for high-stress situations (like job interviews) where he has been undermined by his anxiety. He found it to be sedating, however he took one tablet (instead of 1/2 tablet). He would likely benefit from a lower dose to take as a prn and is encouraged at some point in the next week to try taking 1/2 tablet for situational anxiety. We discuss starting propranolol to help target tremulousness and other phsycial symptoms of anxiety. He is eager to start on the Buspar, so will continue to taper the fluoxetine while he starts on Buspar 5 mg BID then to TID. Suggest taking the PM dose around 5-6 pm with his Latuda to simplify dosing regime. He denies any SI, HI ,AH, VH. Medication Compliance: Yes Side effects from medications: No Attending Groups: Yes Review of Systems Acute medical concerns: No Mental Status Exam Mental Status Exam Narrative: Alert, oriented, in no acute distress. Calm, cooperative, engaged, appears anxious, inhibited but pleasant. Tremulous, but otherwaise no psychomotor agitation or neurovegetative retardation. Eye contact maintained. Mood anxious, affect variable, bright mood congruent. Speech normal. Thought process linear, coherent. Thought content related to stressors, denies any hopelessness or SI. Denies any aggressive ideation or HI. No paranoia or delusional content elicited. No evidence of psychosis. Insight and judgment - fair but adequate. Diagnostics Vital Signs (24Hr): BMI result Body Mass Index 22.2 Assessment & Plan Assessment & Plan (1) MIGUEL A (generalized anxiety disorder): Status: Acute Code(s): F41.1 - Generalized anxiety disorder (2) Depressive disorder: Status: Acute Code(s): F32.A - Depression, unspecified (3) Learning disability: Status: Acute Code(s): F81.9 - Developmental disorder of scholastic skills, unspecified (4) Cognitive attention deficit: Status: Acute Code(s): R41.840 - Attention and concentration deficit Assessment and Plan: with patchy LT memory impairment (?related to chemotx or medical condition) otherwise possible related to developmental issues r/o ADHD (5) Other pervasive developmental disorders: Status: Acute Code(s): F84.8 - Other pervasive developmental disorders (6) History of OCD (obsessive compulsive disorder): Status: Acute Code(s): Z86.59 - Personal history of other mental and behavioral disorders Plan start propranolol 10 mg BID prn anxiety start Buspar 5 mg TID continue to decrease fluoxetine to 20 mg qam continue venlafaxine ER 150 mg qd continue other regular medications? Routine lab work ordered EKG, routine for baseline QTc for medication considerations Continue to monitor Patient educated on: diagnosis and medication risk/benefits Informed Consent: understands Reason for contiued partial hosp. stay Substantial Risk for: med/psych decompensation Certification I certify that partial hospital treatment is medically necessary due to the symptoms and problems resulting from the patient's mental illness and the failure to treat the patient at the partial hospital level of care would likely result in the patient requiring inpatient psychiatric care which could not be pr evented at a less intensive level of care. Total time managing care of this patient today __30__ minutes. Discharge Plan Discharge Attending provider: Sonia Mireles Medications: New buspirone 5 mg tablet 5 mg PO TID Qty: 30 0RF propranolol 10 mg tablet 10 mg PO BID PRN (Reason: for anxiety) Qty: 20 0RF methylphenidate HCl 5 mg tablet 5 mg PO DAILY Qty: 20 0RF Rx Instructions: Partial Fill upon patient request. methylphenidate HCl [Concerta] 18 mg tablet extended release 24hr 18 mg PO QAM Qty: 14 0RF Rx Instructions: Partial Fill upon patient request. buspirone 10 mg tablet 10 mg PO BID Qty: 20 0RF Continued ketoconazole 2 % cream See Rx Instructions .ROUTE .COMPLEX PRN (Reason: Rash) Rx Instructions: APPLY TO FACE AND CHEST TWICE DAILY NEEDED FOR FLARES clobetasol 0.05 % solution See Rx Instructions .ROUTE .COMPLEX Rx Instructions: APPLY TO SCALP TWICE DAILY NEEDED FOR FLARES, DECREASE USE SYMPTOMS IMPROVE ciclopirox 1 % shampoo See Rx Instructions .ROUTE .COMPLEX Rx Instructions: Apply to scalp x2 week, leave on 5 minutes then wash off. lurasidone 40 mg tablet 40 mg PO DAILY Rx Instructions: Take with a 350 calorie snack. Wal-Zyr (cetirizine) 10 mg capsule 10 mg PO DAILY PRN (Reason: Allergy Symptoms) venlafaxine 150 mg capsule,extended release 24hr 150 mg PO DAILY Changed lorazepam 0.5 mg tablet 0.25 - 0.5 mg PO DAILY PRN (Reason: anxiety) Qty: 20 0RF Discontinued fluoxetine 20 mg capsule 40 mg PO QAM Stand Alone Forms: Patient Portal Discharge page Print Language: Upper Sorbian
--- NOTE | 2023-11-29 09:46 | P.PNPSP_ITS ---
Subjective Subjective Date of Service: 11/29/23 Reason For Visit: anxiety,OCD Interim History: Met with patient. Reviewed chart. Noted partial hospital program provider notes on 11/18/2023 and 11/25/2023. Patient reports med changes for anxiety have been helpful, but is also unsure if lowering fluoxetine might make things worse. That being said is willing to per severe with changes and acknowledges that he may be more anxious about this, simply because he has been taking that med ication for such a long time. Has not noted any problems with BuSpar own and overall has felt less anxious. sleep okay. Energy okay. No SI, HI agitation or psychosis. Engage in treatment. He was eager to discuss ADD medications, which he reported discussing with Dr. Mireles last week. Patient will meet with Dr. Mireles later this week, to further discus. Plan: As per patient plan was discuss ADD treatmwnt with Dr. Mireles - will defer to follow up with Dr. Madera to be arranged for 11/30. Propranolol trial daily and prn no other changes ie maintain recently started buspirone 5 tid, recently lowerd fluoxetine and maintain effexor 150 Medication Compliance: Yes Side effects from medications: No Attending Groups: Yes Review of Systems Acute medical concerns: No Review of Systems Review of Systems Yes all other systems are reviewed and are negative Mental Status Exam Mental Status Exam Narrative: Pleasant. Engaged. Casually dressed and presented. Organized. Does have some anxiety evident. Not depressed. No SI or HI. No agitation or psychosis. Insight and judgment good Diagnostics Vital Signs (24Hr): BMI result Body Mass Index 22.2 Assessment & Plan Assessment & Plan (1) MIGUEL A (generalized anxiety disorder): Status: Acute Code(s): F41.1 - Generalized anxiety disorder (2) Depressive disorder: Status: Acute Code(s): F32.A - Depression, unspecified (3) Learning disability: Status: Acute Code(s): F81.9 - Developmental disorder of scholastic skills, unspecified (4) Cognitive attention deficit: Status: Acute Code(s): R41.840 - Attention and concentration deficit Assessment and Plan: with patchy LT memory impairment (?related to chemotx or medical condition) otherwise possible related to developmental issues r/o ADHD (5) Other pervasive developmental disorders: Status: Acute Code(s): F84.8 - Other pervasive developmental disorders (6) History of OCD (obsessive compulsive disorder): Status: Acute Code(s): Z86.59 - Personal history of other mental and behavioral disorders Plan Plan: As per patient plan was discuss ADD treatmwnt with Dr. Mireles - will defer to follow up with Dr. Madera to be arranged for 11/30. Propranolol trial daily and prn no other changes ie maintain recently started buspirone 5 tid, recently lowerd fluoxetine and maintain effexor 150 Patient educated on: diagnosis and medication risk/benefits Informed Consent: understands Reason for contiued partial hosp. stay Substantial Risk for: inability to function and med/psych decompensation Certification I certify that partial hospital treatment is medically necessary due to the symptoms and problems resulting from the patient's mental illness and the failure to treat the patient at the partial hospital level of care would likely result in the patient requiring inpatient psychiatric care which could not be prevented at a less intensive level of care. Total time managing care of this patient today __25__ minutes. Discharge Plan Discharge Attending provider: Sonia Mireles Medications: New fluoxetine 10 mg capsule 10 mg PO DAILY Qty: 30 0RF buspirone 5 mg tablet 5 mg PO TID Qty: 30 0RF lorazepam 0.5 mg tablet 0.5 mg PO DAILY PRN (Reason: anxiety) Qty: 20 0RF propranolol 10 mg tablet 10 mg PO BID PRN (Reason: for anxiety) Qty: 20 0RF No Action ketoconazole 2 % cream See Rx Instructions .ROUTE .COMPLEX PRN (Reason: Rash) Rx Instructions: APPLY TO FACE AND CHEST TWICE DAILY NEEDED FOR FLARES clobetasol 0.05 % solution See Rx Instructions .ROUTE .COMPLEX Rx Instructions: APPLY TO SCALP TWICE DAILY NEEDED FOR FLARES, DECREASE USE SYMPTOMS IMPROVE ciclopirox 1 % shampoo See Rx Instructions .ROUTE .COMPLEX Rx Instructions: Apply to scalp x2 week, leave on 5 minutes then wash off. lurasidone 40 mg tablet 40 mg PO DAILY Rx Instructions: Take with a 350 calorie snack. Wal-Zyr (cetirizine) 10 mg capsule 10 mg PO DAILY PRN (Reason: Allergy Symptoms) venlafaxine 150 mg capsule,extended release 24hr 150 mg PO DAILY fluoxetine 20 mg capsule 40 mg PO QAM Stand Alone Forms: Patient Portal Discharge page Print Language: [place] Telehealth Telehealth Telehealth Platform: Other (please specify) ([employer]) Location of provider rendering services: practice address ([place]) Location of patient: other ([facility] Telehealth method: video Patient verbally consented to treatment: Yes Minutes spent on Phone/Video with Pt.: 15
--- NOTE | 2023-12-02 15:52 | HO.PHPPROGNO ---
Subjective Subjective Date of Service: 12/02/23 Reason For Visit: anxiety,OCD Interim History: I felt the meds they worked well...didnt feel any side effects, felt less tense and anxious Patient started on propranolol however only has been taking a couple of times (bc the bottle says PRN). He denies any lightheadedness/dizziness, and is encouraged to continue on the daily, and would do well to take BID along with the Buspar (in AM and late afternoon). He continues on Buspar 5 mg BID with no issues, he understands it takes time for it to help with generalized/cognitive anxiety which persists, but does not feel it has gotten any worse even with tapering his fluoxetine down from 60 to 20 mg. He admits he had some anxiety about wheteher he was going to be able to taper off the fluoxetine but now that he is almost there he is feeling more optimistic. He is eager to continue titrating the Buspar over the long weekend and is agreeable to discontinuing the Prozac now. He plan to increase Buspar to 10 mg this afternoon, and continue on 5 mg in AM until 2 more days and then will be at 10 mg BID. WIll plan to titrate as tolerated, hopefully we will reach ~15 mg BID by day of discharge and can remain at that dose until he follows up with his OP provider. The PA was not approved for lisdexamfetamine, so will plan to trial methylphenidate. He is aware will start at a very low dose, given we are still treating his anxiety. He reports sleep, appetite, energy are good. Denies ay panic attacks. Mood is okay denies any hopelessness or SI. Medication Compliance: Yes Side effects from medications: No Attending Groups: Yes Review of Systems Acute medical concerns: No Review of Systems Review of Systems Yes all other systems are reviewed and are negative Mental Status Exam Mental Status Exam Narrative: Pleasant. Engaged. Casually dressed and presented. Organized. Does have some anxiety evident. Not depressed. No SI or HI. No agitation or psychosis. Insight and judgment good Diagnostics Vital Signs (24Hr): BMI result Body Mass Index 22.2 Assessment & Plan Assessment & Plan (1) MIGUEL A (generalized anxiety disorder): Status: Acute Code(s): F41.1 - Generalized anxiety disorder (2) Depressive disorder: Status: Acute Code(s): F32.A - Depression, unspecified (3) Learning disability: Status: Acute Code(s): F81.9 - Developmental disorder of scholastic skills, unspecified (4) Cognitive attention deficit: Status: Acute Code(s): R41.840 - Attention and concentration deficit Assessment and Plan: with patchy LT memory impairment (?related to chemotx or medical condition) otherwise possible related to developmental issues r/o ADHD (5) Other pervasive developmental disorders: Status: Acute Code(s): F84.8 - Other pervasive developmental disorders (6) History of OCD (obsessive compulsive disorder): Status: Acute Code(s): Z86.59 - Personal history of other mental and behavioral disorders Plan continue propranolol 10 mg BID regularly increase to titrate Buspar to 10 mg BID (pt prefers BID dosing over TID dosing) taper off fluoxetine continue venlafaxine ER 150 mg qd continue lurasidone 40 mg qd w meals continue other regular medications? Routine lab work ordered EKG, routine for baseline QTc for medication considerations Continue to monitor Patient educated on: diagnosis, medication risk/benefits and substance abuse Informed Consent: understands Reason for contiued partial hosp. stay Substantial Risk for: med/psych decompensation Certification I certify that partial hospital treatment is medically necessary due to the symptoms and problems resulting from the patient's mental illness and the failure to treat the patient at the partial hospital level of care would likely result in the patient requiring inpatient psychiatric care which could not be prevented at a less intensive level of care. Total time managing care of this patient today __30__ minutes. Discharge Plan Discharge Attending provider: Sonia Mireles Medications: New buspirone 5 mg tablet 5 mg PO TID Qty: 30 0RF propranolol 10 mg tablet 10 mg PO BID PRN (Reason: for anxiety) Qty: 20 0RF methylphenidate HCl 5 mg tablet 5 mg PO DAILY Qty: 20 0RF Rx Instructions: Partial Fill upon patient request. methylphenidate HCl [Concerta] 18 mg tablet extended release 24hr 18 mg PO QAM Qty: 14 0RF Rx Instructions: Partial Fill upon patient request. buspirone 10 mg tablet 10 mg PO BID Qty: 20 0RF Continued ketoconazole 2 % cream See Rx Instructions .ROUTE .COMPLEX PRN (Reason: Rash) Rx Instructions: APPLY TO FACE AND CHEST TWICE DAILY NEEDED FOR FLARES clobetasol 0.05 % solution See Rx Instructions .ROUTE .COMPLEX Rx Instructions: APPLY TO SCALP TWICE DAILY NEEDED FOR FLARES, DECREASE USE SYMPTOMS IMPROVE ciclopirox 1 % shampoo See Rx Instructions .ROUTE .COMPLEX Rx Instructions: Apply to scalp x2 week, leave on 5 minutes then wash off. lurasidone 40 mg tablet 40 mg PO DAILY Rx Instructions: Take with a 350 calorie snack. Wal-Zyr (cetirizine) 10 mg capsule 10 mg PO DAILY PRN (Reason: Allergy Symptoms) venlafaxine 150 mg capsule,extended release 24hr 150 mg PO DAILY Changed lorazepam 0.5 mg tablet 0.25 - 0.5 mg PO DAILY PRN (Reason: anxiety) Qty: 20 0RF Discontinued fluoxetine 20 mg capsule 40 mg PO QAM Stand Alone Forms: Patient Portal Discharge page Print Language: Canadian
--- NOTE | 2023-12-06 17:24 | HO.PHPPROGNO ---
Subjective Subjective Date of Service: 12/06/23 Reason For Visit: anxiety,OCD Interim History: Patient seen for follow-up, anticipating discharge at the end of program today.? I'm going on vacation with family . He will be starting work afterward which he is anxious about but also says he looks forward to. ALso look forwawrd to making some money . He is still waiting on the PA for bisi Bray to go through. (Info included below) Reports no acute issues or concerns. Medication compliant, medications well-tolerated. Denies any adverse effects.? Mood is stable.? Denies any hopelessness or SI. Denies thoughts of harming self or others at this time. Denies any aggressive ideation or HI. Denies any paranoia or AH or VH. Sleep, appetite, energy stable. RxBIN: [id number] Rx: ORX Rxgroup: [id number] ID#: [id number] Review of Systems Review of Systems Yes all other systems are reviewed and are negative Mental Status Exam Mental Status Exam Narrative: Alert, oriented, in no acute distress. Presents as nervous, tremulous, with notable stammer, but is otherwise pleasant, somewhat superficially brighter than expected, very talkative but engaging. Comes across as younger than his chronological age. Maintains eye contact. Mood tablet, affect anxious, bright. Speech normal. Goal-directed, future-oriented, denies any hopelessness or SI. Denies any aggressive ideation or HI. No paranoia or delusional content elicited. No evidence of psychosis. Insight and judgment - fair but adequate. Diagnostics Vital Signs (24Hr): BMI result Body Mass Index 22.2 Assessment & Plan Assessment & Plan (1) MIGUEL A (generalized anxiety disorder): Status: Acute Code(s): F41.1 - Generalized anxiety disorder (2) Depressive disorder: Status: Acute Code(s): F32.A - Depression, unspecified (3) Learning disability: Status: Acute Code(s): F81.9 - Developmental disorder of scholastic skills, unspecified (4) Cognitive attention deficit: Status: Acute Code(s): R41.840 - Attention and concentration deficit Assessment and Plan: with patchy LT memory impairment (?related to chemotx or medical condition) otherwise possible related to developmental issues r/o ADHD (5) Other pervasive developmental disorders: Status: Acute Code(s): F84.8 - Other pervasive developmental disorders (6) History of OCD (obsessive compulsive disorder): Status: Acute Code(s): Z86.59 - Personal history of other mental and behavioral disorders Plan [facility]charge from [facility] continue propranolol 10 mg BID regularly continue Buspar at 15 mg BID continue venlafaxine ER 150 mg qd continue lurasidone 40 mg qd w meals continue other regular medications? discont: fluoxetine Refills sent to pharmacy Will defer further medication management to outpatient provider *Safety plan reviewed *Discharge diagnoses, treatment course, discharge plan have been reviewed with patient (including medication regime, medication management, potential side effects) as well as treatment rationale were also revisited *Discharge paperwork signed and given to patient, copy sent for scanning to chart Patient educated on: diagnosis and medication risk/benefits Informed Consent: understands Reason for contiued partial hosp. stay Substantial Risk for: stable for discharge Certification I certify that partial hospital treatment is medically necessary due to the symptoms and problems resulting from the patient's mental illness and the failure to treat the patient at the partial hospital level of care would likely result in the patient requiring inpatient psychiatric care which could not be prevented at a less intensive level of care. Total time managing care of this patient today _30___ minutes. Discharge Plan Discharge Attending provider: Sonia Mireles Medications: New buspirone 15 mg tablet 15 mg PO BID 30 Days Qty: 60 0RF lisdexamfetamine 10 mg capsule 10 mg PO QAM Qty: 30 0RF Rx Instructions: Partial Fill upon patient request. Continued ketoconazole 2 % cream See Rx Instructions .ROUTE .COMPLEX PRN (Reason: Rash) Rx Instructions: APPLY TO FACE AND CHEST TWICE DAILY NEEDED FOR FLARES clobetasol 0.05 % solution See Rx Instructions .ROUTE .COMPLEX Rx Instructions: APPLY TO SCALP TWICE DAILY NEEDED FOR FLARES, DECREASE USE SYMPTOMS IMPROVE ciclopirox 1 % shampoo See Rx Instructions .ROUTE .COMPLEX Rx Instructions: Apply to scalp x2 week, leave on 5 minutes then wash off. lurasidone 40 mg tablet 40 mg PO DAILY Rx Instructions: Take with a 350 calorie snack. Wal-Zyr (cetirizine) 10 mg capsule 10 mg PO DAILY PRN (Reason: Allergy Symptoms) venlafaxine 150 mg capsule,extended release 24hr 150 mg PO DAILY Changed lorazepam 0.5 mg tablet 0.25 - 0.5 mg PO DAILY PRN (Reason: anxiety) Qty: 20 0RF propranolol 10 mg tablet 10 - 20 mg PO BID PRN (Reason: for anxiety) Qty: 60 0RF Discontinued fluoxetine 20 mg capsule 40 mg PO QAM Stand Alone Forms: Patient Portal Discharge page Print Language: Ukrainian
--- NOTE | 2023-12-07 11:42 | PC.NURSE ---
Dr. Mireles aware of lab and EKG results of NSR, Right Atrial Enlargement. Fax EKG results to [facility] PCP..
--- NOTE | 2023-12-08 12:37 | PC.NURSE ---
Faxed PCP's office x2 EKG results. Spoke to Nida in PCP office of [facility] to confirm they received the EKG results. I requested to speak to a RN regarding results. Janelle stated she would have a nurse call me to review. Awaiting call back.
--- NOTE | 2023-12-08 21:38 | PM.EVENT ---
Event Note Date of Service: 12/08/23 Event Note: Attempted to reach patient regarding recent routine EKG noting right atrial enlargement right atrial enlargement. ROS negative. Left VM message stating that I was looking to check in. (Patient has PMH pretinent for PDD and other developmental-related issues) Will try him again later in the day or tomorrow to review. RN to fax EKG findings to PCP office. Time Spent With Patient Time: Total time managing care of this patient today __5__ minutes.
--- NOTE | 2023-12-09 08:41 | PC.NURSE ---
12/09/23 Spoke to Nanda a medical case worker at [facility] PCP office. Nanda stated patients PCP ROHITH Marshall reveiwed Nichole EKG done on 11/21/23 and reported no follow up needed.
== END 2023-12-12 23:59 | disposition home or self-care (01) ==
LOC: HO.PHPA 08:30
PROVIDERS: Visit Provider Psychiatry & Neurology Psychiatry
DX: F41.1 Generalized anxiety disorder (principal); F32.A Depression, unspecified; F81.9 Developmental disorder of scholastic skills, unspecified; R41.840 Attention and concentration deficit; F84.8 Other pervasive developmental disorders; Z86.59 Personal history of other mental and behavioral disorders; Z79.899 Other long term (current) drug therapy
CPT/HCPCS: 90791; 90853

== ENCOUNTER 2024-11-17 18:11 | Emergency (ER) | payer OTHER, SELFPAY ==
[2024-11-17 18:21] VITALS: BP 136/91; PULSE 99; RESP 16; TEMP 36.7; O2SAT 100; BMI 22.5
--- NOTE | 2024-11-17 18:48 | ED.GENADULT ---
HPI - General Adult General Chief complaint: Psychiatric Symptoms Stated complaint: SI Time Seen by Provider: 11/17/24 18:37 Source: patient History of Present Illness HPI narrative: 34-year-old male who has a history of ADHD, depression, anxiety, presents for evaluation of increased anxiety and recent suicidal ideation. Patient states that on he reported feeling overwhelmed, increasingly anxious and depressed. Patient states his depression has been worsening recently. He reports compliance with his medications. Patient states today he was evaluated by behavioral health clinician and directed to the hospital for further evaluation. He denies any physical complaints at this time. He denies any suicidal or homicidal ideation. He did report vague SI without any specific plan. He denies any auditory or visual hallucinations. He denies any tobacco use. Occasional alcohol use but none recently. No illicit drug use. Related Data Home Medications ?Medication ?Instructions ?Recorded ?Confirmed lurasidone 40 mg tablet 40 mg PO DAILY 11/18/23 11/17/24 atomoxetine 40 mg capsule 40 mg PO QAM 11/17/24 11/17/24 buspirone 15 mg tablet 15 mg PO BID 11/17/24 11/17/24 propranolol 20 mg tablet 20 mg PO BID 11/17/24 11/17/24 tramadol 50 mg tablet 50 mg PO QID 11/17/24 11/17/24 triamcinolone acetonide 0.1 % 1 appl topical BID 11/17/24 11/17/24 topical cream venlafaxine 150 mg 150 mg PO DAILY 11/17/24 11/17/24 capsule,extended release 24 hr Allergies Allergy/AdvReac Type Severity Reaction Status Date / Time amoxicillin Allergy Intermediate Vomiting Verified 11/17/24 18:23 sulfamethoxazole (From Allergy Intermediate Vomiting Verified 11/17/24 18:23 ) trimethoprim (From ) Allergy Intermediate Vomiting Verified 11/17/24 18:23 scallops Allergy Vomiting Verified 11/17/24 18:23 epinephrine AdvReac Intermediate dizziness Verified 11/17/24 18:23 Review of Systems Constitutional: Constitutional: Denies chills and Denies fever(s) Cardiovascular: Cardiovascular: Denies chest pain, Denies palpitations, Denies dyspnea, Denies dyspnea on exertion and Denies orthopnea Respiratory: Respiratory: Denies cough, Denies dyspnea and Denies dyspnea on exertion Gastrointestinal: Gastrointestinal: Denies abdominal pain, Denies melena, Denies hematochezia, Denies diarrhea, Denies nausea and Denies vomiting Musculoskeletal: Musculoskeletal: Denies back pain, Denies muscle weakness and Denies numbness Neurologic: Denies focal weakness and Denies numbness Psychiatric: Psychiatric: Reports anxiety, Reports depression and Reports panic attacks Endocrine: Endocrine: Denies palpitations PMFSH Past Medical History Attestation statement: The following information was validated with the patient. Medical History History of chemotherapy Pneumothorax Depression Surgical History History of kidney surgery History of orchiectomy, unilateral H/O brain surgery Hx of local excision of skin lesion Social History Social History Household Members: Family Comment: Pt extended until 12/06/23 Patient Tobacco Use Status: Never used Tobacco Advance Directives: No Advance Directives Information Provided: No Current occupational status: employed Current occupation: [employer] Physical Exam ED Vital Signs: Vital Signs - 24 hr 11/17/24 18:21 Temperature 98.1 F Pulse Rate 99 Respiratory Rate 16 Blood Pressure 136/91 H Pulse Oximetry 100 Oxygen Delivery Method Room Air BMI result Body Mass Index 22.5 Const General: alert, awake and Physically active Eyes Other: Pupils equal round and reactive to light Resp Other: Lung sounds clear throughout Cardio Rate: regular rate Rhythm: regular rhythm Psych Attitude: cooperative Thought process: Normal thought process present Thought content: Depressive thoughts present Insight: Good insight present (Psych) Course Course Course Narrative: Time: 19:29 Date: 11/17/24 Provider: ROHITH Tinoco Patient in physician observation for psychiatric evaluation.? No acute events. No current complaints. VS stable.? Patient is in bed search status/pending CARE team evaluation. Will continue to monitor. Reevaluation(s) Reevaluation #1: 9:35 p.m. patient seen and evaluated by the behavioral health team. The patient has been accepted at respite for tomorrow morning. Patient will be discharged home with his mother. He is able to contract for safety and feels comfortable with this plan. Patient denies any SI or HI. Reviewed all discharge instructions. No further questions at this time. Plan for respite as well as additional resources reviewed by behavioral health teamAndie. Medications Administered Discontinued Medications Generic Name Dose Route Start Last Admin Trade Name Karina PRN Reason Stop Dose Admin Hydroxyzine HCl 25 mg 11/17/24 19:26 11/17/24 20:15 Hydroxyzine Hcl 25 Mg Tablet PO 11/17/24 19:27 25 mg ONCE ONE Administration Medical Decision Making Medical Decision Making [facility] Narrative: 34-year-old male with increased depression, anxiety. Evaluated by behavioral health team, here for further disposition. Patient without any physical complaints. Labs pending. No evidence of intoxication or withdrawal. Differential Diagnosis Differential Diagnoses: The differential diagnosis associated with the presentation includes Depression PTSD Psychosis Anxiety Lab Data [facility] Lab Attestation statement: I reviewed the patient's lab results. 11/17/24 18:49 11/17/24 18:49 Labs: Lab Results 11/17/24 11/17/24 Range/Units 18:49 20:48 WBC 11.1 H (4.8-10.8) X10*3/uL RBC 5.72 (4.60-5.80) X10*6/uL Hgb 16.3 (14.0-18.0) g/dl Hct 46.5 (42.0-52.0) % MCV 81.3 (80.0-98.0) fL MCH 28.5 (27.0-33.0) pg MCHC 35.1 (31.0-36.0) g/dl RDW 12.1 (11.0-16.0) % Plt Count 278 (160-400) X10*3/uL MPV 9.7 (9.4-12.4) fL Immature Gran % (Auto) 0.2 (0.0-0.4) % Neut % (Auto) 77.4 H (45-73) % Lymph % (Auto) 16.0 L (20-40) % [place] % (Auto) 4.8 (2-11) % Eos % (Auto) 1.2 (0-4) % Baso % (Auto) 0.4 (0-2) % Lymph # (Auto) 1.8 (1.2-4.9) X10*3/uL [place] # (Auto) 0.5 (0.1-1.2) X10*3/uL Eos # (Auto) 0.1 (0.0-0.4) X10*3/uL Baso # (Auto) 0.0 (0.0-0.2) X10*3/uL Abs Immat Gran (auto) 0.02 (0.00-0.03) X10*3/uL Absolute Neuts (auto) 8.6 H (2.0-8.3) x10*3/uL Absolute Nucleated RBC 0.000 (0.0-0.012) X10*3/uL Nucleated RBC % (auto) 0.0 (0.0-0.2) /100WBC Sodium 141 (135-145) mmol/L Potassium 3.7 (3.3-5.1) mmol/L Chloride 102 (96-108) mmol/L Carbon Dioxide 28 (22-29) mmol/L Anion Gap 15 (12-20) BUN 16 (9-16) mg/dL Creatinine 1.03 (0.5-1.4) mg/dL Estim Creat Clear Calc 88.3 Estimated GFR > 60 Random Glucose 154 H (60-115) mg/dL Calcium 10.0 (8.4-10.2) mg/dL Total Bilirubin 0.8 (0.0-1.0) mg/dL AST 43 H (5-37) U/L ALT 42 H (0-40) U/L Alkaline Phosphatase 64 (39-117) U/L Total Protein 7.9 (6.5-8.0) g/dL Albumin 5.0 (3.5-5.0) g/dL Hold Yellow Top See Note Urine Color Yellow Urine Appearance Clear Urine pH 6.5 (5.0-9.0) Ur Specific [place] 1.020 (1.005-1.025) Urine Protein Negative (Neg-Trace) mg/dL Urine Glucose (UA) Negative (Negative) mg/dL Urine Ketones Negative (Negative) mg/dL Urine Blood Negative (Negative) Urine Nitrite Negative (Negative) Ur Leukocyte Esterase Negative (Negative) Urine RBC 0-2 (0-2) /HPF Urine WBC 0-5 (0-5) /HPF Ur Squamous Epith Cells 0-2 (0-2) /HPF Urine Bacteria None Seen (None Seen) Hyaline Casts 0-2 (0-2) /LPF Urine Opiates Screen Not Detected (Not Detect) Ur Buprenorphine Scrn Not Detected (Not Detect) ng/mL Ur Oxycodone Screen Not Detected (Not Detect) ng/mL Urine Methadone Screen Not Detected (Not Detect) ng/mL Urine Fentanyl Screen Not Detected (Not Detect) Ur Barbiturates Screen Not Detected (Not Detect) Ur Phencyclidine Scrn Not Detected (Not Detect) Ur Amphetamines Screen Not Detected (Not Detect) U Benzodiazepines Scrn Not Detected (Not Detect) Urine Cocaine Screen Not Detected (Not Detect) U Marijuana (THC) Screen Not Detected (Not Detect) Ethyl Alcohol < 10 mg/dL Influenza Type A (PCR) NEGATIVE (Negative) Influenza Type B (PCR) NEGATIVE (Negative) RSV RNA Qual (PCR) NEGATIVE (Negative) SARS-CoV-2 RNA (RT-PCR) NEGATIVE (Negative) Discharge Plan Discharge Clinical Impression: MIGUEL A (generalized anxiety disorder) Patient Disposition: Home, Self-Care Instructions: Anxiety (ED) Additional Instructions: Follow up with your plan with the behavioral health team. Report directly to respite tomorrow. Continue current medications as directed. Follow-up with your primary care provider. Call this week to schedule a follow-up appointment. Return to the emergency department if you have any worsening of symptoms, or any concerns. Get well soon! Prescriptions: No Action lurasidone 40 mg tablet 40 mg PO DAILY Rx Instructions: Take with a 350 calorie snack. venlafaxine 150 mg capsule,extended release 24hr 150 mg PO DAILY tramadol 50 mg tablet 50 mg PO QID triamcinolone acetonide 0.1 % cream 1 appl topical BID propranolol 20 mg tablet 20 mg PO BID buspirone 15 mg tablet 15 mg PO BID atomoxetine 40 mg capsule 40 mg PO QAM Print Language: Bolivian
[2024-11-17 18:55] LABS: MANUAL DIFF FLAG NO
[2024-11-17 18:56] LABS: Hematocrit 46.5 % (42.0-52.0); Hemoglobin 16.3 g/dl (14.0-18.0); Imm Gran Abs Auto 0.02 X10*3/uL (0.00-0.03); Imm Gran Pct Auto 0.2 % (0.0-0.4); Lymphocytes Absolute Auto 1.8 X10*3/uL (1.2-4.9); Mean Corpuscular HGB Conc 35.1 g/dl (31.0-36.0); Mean Corpuscular Hemoglobin 28.5 pg (27.0-33.0); Mean Corpuscular Volume 81.3 fL (80.0-98.0); NRBC Abs Auto 0.000 X10*3/uL (0.0-0.012); NRBC Pct Auto 0.0 /100WBC (0.0-0.2); Platelet Count 278 X10*3/uL (160-400); Red Blood Count 5.72 X10*6/uL (4.60-5.80); White Blood Count 11.1 X10*3/uL (4.8-10.8)
[2024-11-17 19:17] LABS: Alanine Aminotransferase 42 U/L (0-40); Albumin Level 5.0 g/dL (3.5-5.0); Alkaline Phosphatase 64 U/L (39-117); Anion Gap 15 (12-20); Aspartate Amino Transferase 43 U/L (5-37); Blood Urea Nitrogen 16 mg/dL (9-16); Calcium 10.0 mg/dL (8.4-10.2); Carbon Dioxide 28 mmol/L (22-29); Chloride 102 mmol/L (96-108); Creatinine Clr Calc Pharmacy 88.3; Estimated Glomerular Filt Rate > 60; Potassium 3.7 mmol/L (3.3-5.1); Sodium 141 mmol/L (135-145); Total Protein 7.9 g/dL (6.5-8.0)
--- OUTSIDE RECORDS SUMMARY | 2024-11-17 19:32 | XMS_ITS | Encounter Summary ---
Author Organization [facility] Address [address] [place] [address] Phone Care Team Providers Care Aviation Tactical Readiness Officer Name Role Phone Jesús Meraz MD Primary Care Provider [phone] Umberto AcostaSW Unavailable [phone] Encounter Details Date Type Department Care Team (Late st Contact Info) Description 11/12/2022 Procedure Pass [facility] Endoscopy Admitting Dept Virtual Department [address] [place] [address] Social History Tobacco Use Types Packs/Day Years Used Date Smoking Tobacco: Never Smokeless Tobacco: Never Alcohol Use Standard Drinks/Week Comments Yes 0 (1 standard drink = 0.6 oz pur e alcohol) weekly 2x Education Answer Date Recorded Are you interested in more education? Not on corrie e 08/27/2022 Are you concerned about learning? Not on file 08/27/2022 No 08/27/2022 No 08/27/2022 Digital Access Answer Date Recorded No 08/27/2022 No 08/27/2022 Reliable internet access at home? Not on file 08/27/2022 Device with a working camera? Not on file Intimate Partner Violence Answer Date R ecorded Denied Basic Needs Not on file 11/11/2022 In the past 12 months have y ou been in a relationship with a person who hurts, threatens, or tries to control you? No 11/11/2022 Worried food would run out Not on file 11/11 In the past 12 months have y ou been in a relationship with a person who hurts, threatens, or tries to control you? No 11/11/2022 Sex and Gender Information Value Date Recorded Sex Assigned at Not on file Legal Sex Male 5:45 PM EST Gender Identity Not on file Sexual Orientation Not on file documented as of this encounter Plan of Treatment Not on file documented as of this encounter Visit Diagnoses Not on filedocumented in this encounter Care Teams Aviation Tactical Readiness Officer Relationship Specialty Start Date End Date Jesús Meraz MD [email or web address] PCP - General 11/12/22 Umberto Acotsa, [address] [address] [employer] Social Work 08/23/24 09/18/24 documented as of this encounter Additional Source Comments The information contained in this document represents components of the legal health record. It is not the complete legal health record.[facility]
--- OUTSIDE RECORDS SUMMARY | 2024-11-17 19:32 | XMS_ITS ---
Author Name [facility] Organization Unknown Care Team Organization Name Specialty Phone Email Start Date End Da te [facility] Primary Care 02/09/2022 11/21/19 24
[2024-11-17 19:34] LABS: Resp Syncy Virus RNA Qual PCR NEGATIVE (Negative); SARS COV2 PCR INHOUSE NEGATIVE (Negative)
[2024-11-17 20:56] LABS: Appearance Urine Clear; Glucose Urine UA Negative (Negative); PH 6.5 (5.0-9.0); Specific Gravity - Urine 1.020 (1.005-1.025)
[2024-11-17 21:05] LABS: Cannabinoid Screen Urine Not Detected (Not Detect)
--- NOTE | 2024-11-17 21:38 | PC.NURSE ---
Being discharged home with mother, respite tomorrow AM. [facility] (CARE team) received acceptance for referral.
[2024-11-17 21:50] VITALS: BP 136/91; PULSE 99; RESP 16; TEMP 36.7; O2SAT 100
== END 2024-11-17 21:50 | disposition home or self-care (01) ==
PROVIDERS: Emergency Provider Emergency Medicine; PCP Physician Assistant
DX: F41.1 Generalized anxiety disorder (principal); R45.851 Suicidal ideations; F90.9 Attention-deficit hyperactivity disorder, unspecified type; F32.A Depression, unspecified
CPT/HCPCS: 80053; 80307; 81001; 85025; 87637; 99284; S9485

== ENCOUNTER 2025-02-13 08:37 | Outpatient (AMB) | payer OTHER, SELFPAY ==
--- NOTE | 2025-02-13 08:40 | A.OFFVIS_ITS ---
Vital Signs 02/13/25 08:51 Height 5 ft 8 in Weight 148 lb BMI 22.5 Intake Visit Reasons: The IMO content you are accessing is 32 months old. To get updated IMO content, please contact your IT Dept/Help Desk requesting the latest release. IT Dept/Help Desk- Please refer to our FAQ page ([email or web address]) or contact [employer] Customer Support at [email or web address], Right knee pain Intake Note: Boogie is a 34 year old male who presents with complaints of progressively worsening right knee pain. He did undergo right knee arthroscopic surgery on 03/04/2023. He got fairly good relief from that surgery initially. Has recently done 2 rounds of formal physical therapy which gave him minimal relief. He has had a cortisone injection in the past given by another provider which gave him no relief. He denies any locking or giving way. He has failed the last 3 months of conservative treatment which has included formal physical therapy, Tylenol, anti-inflammatory medicines and a home exercise program. At this point his right knee pain is interfering with his activities of daily living and his ability to sleep well through the night. He has not had a viscosupplementation injection. Allergies amoxicillin Allergy (Intermediate, Verified 02/13/25 08:50) Vomiting sulfamethoxazole (From Septra) Allergy (Intermediate, Verified 02/13/25 08:50) Vomiting trimethoprim (From Septra) Allergy (Intermediate, Verified 02/13/25 08:50) Vomiting scallops Allergy (Verified 02/13/25 08:50) Vomiting epinephrine Adverse Reaction (Intermediate, Verified 02/13/25 08:50) dizziness Medication List - Last Reconciled 02/13/25 by Vaughn Clemens MD atomoxetine 40 mg PO QAM buspirone 15 mg PO BID lurasidone 40 mg PO DAILY propranolol 20 mg PO BID triamcinolone acetonide 0.1% 1 appl topical BID venlafaxine ER 150 mg PO DAILY PFSH Medical History (Updated 02/13/25 @ 09:07 by Vaughn Clemens MD) Right knee pain History of chemotherapy Pneumothorax Depression Surgical History (Updated 02/13/25 @ 08:51 by LEXIS Madrigal) H/O arthroscopic knee surgery History of kidney surgery History of orchiectomy, unilateral H/O brain surgery Hx of local excision of skin lesion Social History Household Members: Family Comment: Pt extended until 12/06/23 Patient Tobacco Use Status: Never used Tobacco Current occupational status: employed 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 Physical Exam Vital Signs: BMI result Body Mass Index 22.5 Const Other: Well-nourished well-developed very friendly male awake alert and oriented x3 in no acute distress Extrem Other: Right knee examination shows a minimal effusion, mild crepitus with range of motion, pain with range of motion, no instability Results Reviewed Results Reviewed: X-rays of the patient's right knee taken previously show mild diffuse joint space narrowing, subchondral sclerosis, no acute bony abnormalities Assessment & Plan Assessment & Plan (1) Right knee pain: Code(s): M25.561 - Pain in right knee Category: Medical (2) Osteoarthritis of right knee: Code(s): M17.11 - Unilateral primary osteoarthritis, right knee Category: Medical Plan Mr. Araiza presents with right knee pain due to osteoarthritis. I had a lengthy discussion with the patient regarding the treatment options. He wishes to hold off on further surgery if at all possible. I agree with this plan. I will see if the patient's insurance company will cover a viscosupplementation injection, such as Durolane, for his right knee. I will see him back once the injection is approved. Feel free to call me at any time should questions regarding his orthopedic management arise. I spent 20 minutes in reviewing the patient's records and imaging studies, seeing the patient and documenting in the medical record. Coding Level of Care Code Est Pt Level 3 (88529) Complex EM visit Add On G2211 Diagnoses IMO-PROB-0 Right knee pain M25.561 Osteoarthritis of right knee M17.11
[2025-02-13 08:51] VITALS: BMI 22.5
--- OUTSIDE RECORDS SUMMARY | 2025-02-13 08:58 | XMS_ITS | Clinical Summary ---
Author Organization [facility] Address [address] [place] [address] Phone Care Team Providers Care Thoracic Surgeon Name Role Phone Jesús Meraz MD Primary Care Provider [phone] Allergies Active Allergy Reactions Criticality Noted Date Comments Amoxicillin 04/02/2019 Epinephrine Medium 12/25/2018 Other reaction(s): DIZZINESS Mollusks 09/28/2017 Shellfish Derived Vomiting High 12/25/2018 Sulfamethoxazole-Trimethopr im Vomiting Medium 09/28/2017 Medications cetirizine (ZYRTEC) 10 MG tablet Take by mouth. Active FLUoxetine (PROZAC) 40 MG capsule Take by mouth. Active multivitamin per tablet Take by mouth. Active venlafaxine (EFFEXOR-XR) 150 MG 24 hr capsule TAKE 1 CAPSULE BY MOUTH EVERY DAY FOR 90 DAYS 10/19/2022 Active bran/gum/fib/ce l/psyl/kelp/pec (FIBER 6 ORAL) Take by mouth. gummie Active psyllium (KONSYL-D) powder Take by mouth 3 (three) times a day. Active Encounters Date Type Department Care Team Description 12/31/2024 [facility] RISK SCORES SYSTEM GENERATED External System Generated Encounter [address] [place] [address] Unknown, Unknown, from Last 3 Months Social History Tobacco Use Types Packs/Day Years [...] on file Sexual Orientation Not on file Last Filed Vital Signs Vital Sign Reading Time Taken Comments Blood Pressure 109/60 11/12/2022 11:44 AM EDT Pulse 68 11/12/2022 11:47 AM EDT Temperature 36 C (96.8 F) 11/12/2022 11:29 AM EDT Respiratory Rate 16 11/12/2022 11:47 AM EDT Oxygen Saturation 94% 11/12/2022 11:47 AM EDT Inhaled Oxygen Concentration - - Weight 64.9 kg (143 lb) 11/11/2022 1:18 PM EDT Height 172.7 cm (5' 8 ) 11/11/2022 1:18 PM EDT Body Mass Index 21.74 11/11/2022 1:18 PM EDT Plan of Treatment Health Maintenance Due Date Last Done Comments DEPRESSION SCREENING 2003 HEPATITIS C SCREENING 07/20/2009 HIV ONE-TIME SCREENING (18-65 YEARS) 07/20/2009 Adult Td,Tdap Booster 03/22/2018 03/22/2008, 003 INFLUENZA VACCINE (#1) 2024 , 02/10/2021, 01/28/2020, Additional history exists COVID-19 VACCINE ( season) 2024 02/10/2021, 07/14/2020 HIB VACCINES Completed 10/24/1992, 01/02, 1991, Additional history exists IPV VACCINES Completed 10/22/1996, 01/03, 1991, Additional history exists MENINGOCOCCAL VACCINES (ACWY) Aged Out 07/14/2011, 03/15/2006 No longer eligibl e based on patient's age to complete this topic SMOKING STATUS SCREENING (Once After 26 Yrs) Completed 11/12/2022 HEPATITIS A VACCINES Aged Out No long er eligible based on patient's age to complete this topic MENINGOCOCCAL VACCINES (B) Aged Out N o longer eligible based on patient's age to complete this topic PNEUMOCOCCAL VACCINES (0-49 years) Aged Out No longer eligible based on patient's age to complete this topic Medical Devices Not on file Insurance [facility] Member Subscriber Plan / Payer (Ef fective 2022-) Name:Boogie Araiza Relation to Subscriber:Self Name:Boogie Araiza Payer ID:[id number] (NAIC) Group ID:Not on file Type:Medicaid Address: [employer] [place] [address] HARSHAD CHICAS MD [facility] A[facility] Member Subscriber Plan / Payer (Ef fective 2022-Present) Name:Boogie Araiza Relation to Subscriber:Self Name:Boogie Araiza Payer ID:[id number] (NAIC) Group ID:Not on file Type:Medicaid Address: [employer] CLAIMS [address] HARSHAD CHICAS MD [facility] [place] [address] Care Teams Thoracic Surgeon Relationship Specialty Start Date End Date Jesús Meraz MD [email or web address] PCP - General 11/12/22 Additional Source Comments The information contained in this document represents components of the legal health record. It is not the complete legal health record.[facility]
--- OUTSIDE RECORDS SUMMARY | 2025-02-13 08:58 | XMS_ITS | Encounter Summary ---
Author Organization [facility] Address [address] [place] [address] Phone Care Team Providers Care Nurse Anesthetist Name Role Phone Jesús Meraz MD Primary Care Provider [phone] Umberto AcostaSW Unavailable [phone] Encounter Details Date Type Department Care Team (Late st Contact Info) Description 11/12/2022 Procedure Pass [facility] Endoscopy Admitting Dept Virtual Department [address] [place] [address] Social History Tobacco Use Types Packs/Day Years [...] on filedocumented in this encounter Care Teams Nurse Anesthetist Relationship Specialty Start Date End Date Jesús Meraz MD [email or web address] PCP - General 11/12/22 Umberto Acosta, [address] [address] [email or web address] PHCM Peer Tutor 08/23/24 09/18/24 documented as of this encounter Additional Source Comments The information contained in this document represents components of the legal health record. It is not the complete legal health record.[facility]
--- OUTSIDE RECORDS SUMMARY | 2025-02-13 08:58 | XMS_ITS | Clinical Summary ---
Author Organization [facility] Address [address] [place] [address] Care Team Providers Care Sign Out Clerk Name Role Phone Therese Muller MD Primary Care Provider [phone] Allergies Active Allergy Reactions Criticality Noted Date Comments Amoxicillin 04/02/2019 Mollusks 09/28/2017 Sulfamethoxazole-Trimethoprim 2017 Medications Medication Sig Dispensed Refills Start Date End Date Status lithium carbonate 300 MG capsule Take 150 mg by mouth daily. 0 Active VENLAFAXINE HCL PO Take 20 mg by mouth daily. 0 Active FLUoxetine (PROZAC) 20 MG tablet Take 20 mg by mouth daily. 0 Active Multiple Vitamin (MULTI-VITAMINS PO) Take by mouth. 0 A ctive linaCLOtide (LINZESS PO) Take by mouth. 0 Active dicyclomine (BENTYL) 20 MG tablet Take 20 mg by mouth every 6 (six) hours. 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 Staging:Pathologic stage from 04/23/2015:Stage IIIB(pT2, pN1, cM0, S2) - Signed by Luciano Singleton MD on 07/15/2018 Social History Tobacco Use Types Packs/Day Years Used Date Smoking Tobacco: Never Assessed Sex and Gender Information Value Date Recorded Sex Assigned at Not on file Gender Identity Not on file Sexual Orientation Not on file Job Start Date Occupation Industry Not on file Not on file Not on file Last Filed Vital Signs Vital Sign Reading Time Taken Comments Blood Pressure 144/83 12/03/2021 9:42 AM EDT Pulse 96 12/03/2021 9:42 AM EDT Temperature 36.6 C (97.8 F) 12/03/2021 9:42 AM EDT Respiratory Rate - - Oxygen Saturation 96% 12/03/2021 9:42 AM EDT Inhaled Oxygen Concentration - - Weight 68.5 kg (151 lb) 12/03/2021 9:42 AM EDT Height 170.2 cm (5' 7 ) 12/03/2021 9:42 AM EDT Body Mass Index 23.65 12/03/2021 9:42 AM EDT Plan of Treatment Health Maintenance Due Date Last Done Comments Hepatitis C Screening 1991 Pneumococcal Vaccine (1 of 2 - PCV) 07/20/1997 Depression Screening 2003 Preventative Health Evaluation 07/20/2009 DTap / Tdap / Td (7 - Td or Tdap) 03/22/2018 03/22/2008, 10/22/1996, 01/26/1993, Additional history exists COVID-19 Vaccine (2 - Prema risk series) 08/11/2020 07/14/2020 Influenza Vaccine (#1) 2024 3, 12/24/2009, 04/14/2009, Additional history exists Hepatitis B Vaccines Completed 03/25/1992, 1991, 1991 RSV Ped < 20 months Aged Out No longe r eligible based on patient's age to complete this topic Care Teams Sign Out Clerk Relationship Specialty Start Date End Date Therese Muller MD [address] [place] [address] PCP - General Internal Medicine 12/02/20
== END 2025-02-13 09:04 | disposition home or self-care (01) ==
LOC: HO.HOS 08:38
PROVIDERS: PCP Physician Assistant; Visit Provider Orthopaedic Surgery
DX: M25.561 Pain in right knee (principal); M17.11 Unilateral primary osteoarthritis, right knee
CPT/HCPCS: 99213; G2211